=== PATIENT | male | born 1950 | race Caucasian/White ===

== ENCOUNTER 2021-05-13 05:49 | Day surgery (SDC) | payer MEDICARE, OTHER ==
[~2021-05-13] VITALS: Ht 168 cm; Wt 92.0 kg
[~2021-05-13 05:49] MED LIST: ALPRAZOLAM 1MG T1 MG PO; CIPRO500 MG PO; DICYCLOMINE HCL20 MG PO; PERCOCET 7.5/321 TAB PO
[2021-05-13] MEDS ORDERED: IBUPROFEN400 MG PO (06:07)
[2021-05-13 06:12] LABS: BILIRUBIN NEGATIVE (NEGATIVE); BLOOD TRACE-INTACT Ery/uL (NEGATIVE); CLARITY CLEAR (CLEAR); COLOR YELLOW (YELLOW); GLUCOSE (U) NORMAL (NORMAL); LEUKOCYTES 1+ Leu/uL (NEGATIVE); NITRITE NEGATIVE (NEGATIVE); PROTEIN 1+ mg/dL (NEGATIVE); SPECIFIC GRAVITY >=1.030 (1.001-1.030); UROBILINOGEN 0.2 mg/dL (0.2-1.0)
[2021-05-13 06:18] LABS: BACTERIA 1+; MUCOUS TRACE; URINARY RBC RARE; URINARY WBC 20-50
[2021-05-13 06:19] LABS: GRANULAR CASTS TRACE
[2021-05-13] MEDS ORDERED: PERCOCET 5-3251 EACH PO (09:07)
--- NOTE | 2021-05-13 16:08 | NUR ---
05/13/21 Mr. Giles lives alone. He has the support of his brother post discharge. A referral was made to [facility] for a rw which has been delivered. An outpatient appointment was schedule at [facility], [phone], on 05/15/21 at 11:30. A report was given to MS VIVIANA Wright.
[2021-05-14 05:53] LABS: BASOPHIL 0.3 % (0-2); EOSINOPHIL 0.4 % (0-7); HCT 36.2 % (42.0-52.0); HGB 12.1 g/dl (13.2-18.0); LYMPHOCYTE 10.9 % (15-48); MCH 27.8 pg (25.0-31.0); MCHC 33.4 g/dL (32.0-36.0); MCV 83.2 fL (78.0-100.0); MONOCYTE 9.9 % (0-12); MPV 8.8 fL (6.0-9.5); NRBC 0; PLT 200 K/uL (150-400); RBC 4.35 M/uL (4.70-6.00); RDW 13.8 % (11.5-14.0); WBC 10.8 K/uL (4.0-10.5)
[2021-05-14 06:12] LABS: BUN/CREAT RATIO (CALC) 13.9 RATIO; CREATININE 0.79 mg/dL (0.67-1.17); POTASSIUM 4.2 mmol/L (3.5-5.1)
[2021-05-14] MEDS ORDERED: ASPIRIN81 MG PO (09:10)
[2021-05-14] MEDS ORDERED: FEOSOL325 MG PO (09:10)
[2021-05-14] MEDS ORDERED: ULTRA-LIGHT RO1 EACH XX (09:10)
== END 2021-05-14 11:13 | disposition home or self-care (01) ==
LOC: FAS 05:49 → FMS 05:49 → FAS 07:00 → FMS 07:56 → FAS 05-14 11:13
PROVIDERS: Orthopaedic Surgery
DX: M17.11 Unilateral primary osteoarthritis, right knee (principal); M21.161 Varus deformity, not elsewhere classified, right knee; E78.5 Hyperlipidemia, unspecified; F41.9 Anxiety disorder, unspecified; F32.9 Major depressive disorder, single episode, unspecified; R82.90 Unspecified abnormal findings in urine; M79.609 Pain in unspecified limb; R09.02 Hypoxemia
CPT/HCPCS: 36415; 73560; 80048; 81001; 85025; 86850; 86900; 86901; 94010; 94760; 94762; 97110; 97116; 97161; 97166; 97530; 97535; C1713; C1776; J0171; J1100; J1170; J1885; J2250; J2270; J2370; J2405; J2704; J2795; J3010; J3370; J7040; J7120

== ENCOUNTER 2021-11-19 18:55 | Emergency (ER) | payer MEDICARE, OTHER ==
[~2021-11-19 18:55] MED LIST changes: +ASPIRIN81 MG PO; +FEOSOL325 MG PO; +IBUPROFEN400 MG PO; +PERCOCET 5-3251 EACH PO; +ULTRA-LIGHT RO1 EACH XX
[2021-11-19 20:26] LABS: BASOPHIL 0.4 % (0-2); EOSINOPHIL 0.1 % (0-7); HCT 50.1 % (42.0-52.0); LYMPHOCYTE 10.1 % (15-48); MCH 27.5 pg (25.0-31.0); MCHC 33.9 g/dL (32.0-36.0); MCV 80.9 fL (78.0-100.0); MONOCYTE 5.8 % (0-12); MPV 8.4 fL (6.0-9.5); NEUTROPHIL 83.2 % (41-80); NRBC 0; PLT 288 K/uL (150-400); RBC 6.19 M/uL (4.70-6.00); RDW 13.9 % (11.5-14.0); WBC 14.1 K/uL (4.0-10.5)
[2021-11-19 20:27] LABS: BILIRUBIN 2+ mg/dL (NEGATIVE); BLOOD 1+ Ery/uL (NEGATIVE); CLARITY CLEAR (CLEAR); COLOR YELLOW (YELLOW); GLUCOSE (U) NORMAL (NORMAL); LEUKOCYTES TRACE Leu/uL (NEGATIVE); NITRITE NEGATIVE (NEGATIVE); PROTEIN 2+ mg/dL (NEGATIVE); SPECIFIC GRAVITY >=1.030 (1.001-1.030); UROBILINOGEN 0.2 mg/dL (0.2-1.0)
[2021-11-19 20:38] LABS: BACTERIA 2+
[2021-11-19 20:39] LABS: AMORPHOUS URATES CRYSTALS MODERATE
[2021-11-19 20:50] LABS: BUN 23 mg/dL (7-18); BUN/CREAT RATIO (CALC) 22.1 RATIO; CHLORIDE 100 mmol/L (98-107); CO2 (BICARBONATE) 23 mmol/L (21-32); CREATININE 1.04 mg/dL (0.67-1.17); GLUCOSE 92 mg/dL (74-106); POTASSIUM 3.9 mmol/L (3.5-5.1)
[2021-11-19 21:00] LABS: CORONAVIRUS 2019 SARS-COV-2 NEGATIVE (NEGATIVE); INFLUENZA A NAA NEGATIVE (NEGATIVE)
[2021-11-19 21:13] LABS: LACTIC ACID 1.5 mmol/L (0.4-1.9)
[2021-11-19 21:46] LABS: AMPHETAMINES NEGATIVE (NEGATIVE); BARBITURATES NEGATIVE (NEGATIVE); ECSTASY (MDMA) NEGATIVE (NEGATIVE); MARIJUANA (THC) NEGATIVE (NEGATIVE); METHADONE NEGATIVE (NEGATIVE); OPIATES NEGATIVE (NEGATIVE); OXYCODONE POSITIVE (NEGATIVE)
[2021-11-19] MEDS ORDERED: LEVAQUIN500 MG PO (22:32)
== END 2021-11-19 23:00 | disposition home or self-care (01) ==
LOC: FER 18:55
PROVIDERS: Nurse Practitioner Family
DX: R41.3 Other amnesia (principal); E86.0 Dehydration; N39.0 Urinary tract infection, site not specified; Z88.0 Allergy status to penicillin; Z88.2 Allergy status to sulfonamides; Z20.822 Contact with and (suspected) exposure to COVID-19
CPT/HCPCS: 36415; 70450; 80048; 80305; 81001; 83605; 84484; 85025; 87088; 93005; G0480; J1956; J7030; U0002